=== PATIENT | female | born 1990 | race Caucasian/White ===

== ENCOUNTER 2024-06-09 15:06 | Emergency (ER) | payer BC ==
[2024-06-09] MEDS ORDERED: fentaNYL 50 mcg/mL 1 mL Vial ONE (15:44)
[2024-06-09] MEDS ORDERED: Lidocaine 1% PF 5 ML VIAL ONE (15:58)
[2024-06-09] MEDS ORDERED: Bupivacaine PF 0.5% 30 ML VIAL ONE (15:58)
[2024-06-09] MEDS ORDERED: KETAMINE 100 MG/ML (5ML VIAL) ONE (16:25)
[2024-06-09] MEDS ORDERED: Ondansetron PF 4 MG/2 ML Vial ONE ×2 (17:03→18:04)
== END 2024-06-09 19:09 | disposition home or self-care (01) ==
LOC: ERS 15:06
DX: S52.501A Unspecified fracture of the lower end of right radius, initial encounter for closed fracture (principal); S53.124A Posterior dislocation of right ulnohumeral joint, initial encounter; S80.01XA Contusion of right knee, initial encounter; V80.010A Animal-rider injured by fall from or being thrown from horse in noncollision accident, initial encounter; Y93.89 Activity, other specified
CPT/HCPCS: 24600; 25660; 96374; 96375; 96376; 99152; J0665; J2405; J3010